=== PATIENT | male | born 1995 | race African-American/Black ===

== ENCOUNTER 2019-06-16 14:46 | Day surgery (SDC) | payer SELFPAY ==
[~2019-06-16] VITALS: Ht 180.3 cm; Wt 86.2 kg
[2019-06-16] MEDS ORDERED: XANAX 1MG1 MG PO (14:59)
[2019-06-16] MEDS ORDERED: REMERON 15M15 MG/TA1 PO (15:00)
[2019-06-16] MEDS ORDERED: ROXICODONE 55 MG/TAB PO (15:00)
[2019-06-16 15:01] VITALS: BP 139/8; PULSE 86; TEMP 98.5
[2019-06-16] MEDS ORDERED: CELEXA10 MG PO (15:01)
--- NOTE | 2019-06-16 15:14 | NUR ---
The patient answered yes to question 1 on the suicide risk screening. The nurse discussed with the patient if he had anyone he could reach out to in a time of need. He stated that he can call his mother but she lives over 18 hours away. The patient did inform the nurse that he has plans to start seeing someone at [facility] as he has recently found that he "can't handle things on his own anymore". The nurse encouraged the patient to follow through with starting treatment there and also informed the patient that he can and should always go to the nearest emergency room if he had thoughts of harming himself.
[2019-06-16 15:40] VITALS: BP 153/98; PULSE 86; TEMP 98.5
--- NOTE | 2019-06-16 15:40 | NUR ---
The patient arrived back to [facility] from the endoscopy suite at this time. The patient appears drowsy but arouses easily to his name. The patient ambulated to the cart with the stand by assitance of two nurses and appeared to tolerate the activity well. Post procedure vital signs were started at this time. The patient agrees to try some apple juice. Call light is within reach. Will continue to monitor the patient.
[2019-06-16 15:55] VITALS: BP 145/90; PULSE 84
--- NOTE | 2019-06-16 15:55 | NUR ---
The patient appears to be tolerating the juice well and denies wanting anything further to eat or drink at this time. Dr. Castillo was at the patient's bedside to discuss the findings of the procedure.
[2019-06-16 16:10] VITALS: BP 148/88; PULSE 87
--- NOTE | 2019-06-16 16:10 | NUR ---
Discharge instructions were reviewed with the patient at this time and he verbalized understanding at this time. The nurse again discussed with the patient his current mental health and whether he felt comfortable going home or if he was having thoughts of harming himself. The nurse told the patient that there were resources available to him and we wanted to provided him the help he needed. He told the nurse that he has an emotional support dog at home and he was avoiding alcohol and "other mind altering substances" until his appointment with [facility] next week. The nurse told the patient to call [facility] if he felt that he needed to be seen sooner or to go to the nearest emergency room if he starts that have thoughts of harming himself. He verbalized understanding and denies wanting anything further services at this time. The patient's IV to his right hand was removed and a pressure dressing was applied to the site.
--- NOTE | 2019-06-16 16:20 | NUR ---
The patient was escorted out via wheelchair to a private vehicle by DUNCAN Hale. The patient's belongings and discharge paperwork were sent with him. The patient's friend, Luis, is present to drive him home.
== END 2019-06-16 16:20 | disposition home or self-care (01) ==
LOC: SDCO 14:46
DX: K29.30 Chronic superficial gastritis without bleeding (principal); R19.7 Diarrhea, unspecified; F17.210 Nicotine dependence, cigarettes, uncomplicated; K76.0 Fatty (change of) liver, not elsewhere classified; R16.0 Hepatomegaly, not elsewhere classified; B19.9 Unspecified viral hepatitis without hepatic coma; Z88.8 Allergy status to other drugs, medicaments and biological substances; Z88.6 Allergy status to analgesic agent
CPT/HCPCS: J2704; J7030